=== PATIENT | male | born 1965 | race Two or more races ===

== ENCOUNTER → 2018-06-19 | Outpatient (CLI) | payer OTHER ==
[~2018-06-19] MED LIST: ASPI-650 PO; CALC-557 PO; CYAN250013 PO; DOCU-131 PO; FERR325T16 PO; FERR325T18 PO; FURO40TA6 PO; GUAI600T31 PO; INSU100I28 SQ-INSULIN; IPRA3AMP30 NPPB; LEVO750T26 PO; LISI-167 PO; METF1000 PO; METF500T17 PO; OMEP-110 PO; POTA20TA14 PO; PRED10TA PO; TAMS-11 PO; TRAZ150T62 PO
[2018-06-19 08:57] LABS: ALBUMIN 3.9 g/dL (3.4-5.0); ANION GAP 6 mmol/L (5-15); CALCIUM 9.2 mg/dL (8.5-10.1); CHLORIDE 107 mmol/L (98-107)
[2018-06-19 09:02] LABS: ALANINE AMINOTRANSFERASE 20 U/L (12-78); ALKALINE PHOSPHATASE 97 U/L (45-117); BILIRUBIN,TOTAL 0.3 mg/dL (0.2-1.0); CREATININE 0.85 mg/dL (0.7-1.3); TOTAL PROTEIN 7.7 g/dL (6.4-8.2)
[2018-06-19 10:25] LABS: BASOPHILS # (AUTO) 0.01 x10^3/uL (0-0.1); BASOPHILS % (AUTO) 0 % (0-1); EOSINOPHILS # (AUTO) 0.07 x10^3/uL (0-0.4); EOSINOPHILS % (AUTO) 1 % (1-7); LYMPHOCYTES # (AUTO) 0.88 x10^3/uL (1-3.4); LYMPHOCYTES % (AUTO) 13 % (22-44); MD MORPH REVIEW ONLY; MEAN CORPUSCULAR HEMOGLOBIN 21.5 pg (27.5-34.5); MEAN CORPUSCULAR HGB CONC 30.4 g/dL (33.2-36.2); MEAN CORPUSCULAR VOLUME 70.7 fL (81-97); MEAN PLATELET VOLUME 9.3 fL (7.4-10.4); MONOCYTES # (AUTO) 0.49 x10^3/uL (0.2-0.8); MONOCYTES % (AUTO) 8 % (2-9); NEUTROPHILS # (AUTO) 5.11 x10^3/uL (1.8-6.8); NEUTROPHILS % (AUTO) 78 % (42-75); PLATELET COUNT 267 x10^3/uL (130-400); RED BLOOD COUNT 5.28 x10^6/uL (4.38-5.82); RED CELL DISTRIBUTION WIDTH 22.9 % (9.4-14.8)
[2018-06-19 10:30] LABS: ANISOCYTOSIS 2+; MICROCYTOSIS 1+
[2018-06-19 10:33] LABS: <PLATELET ESTIMATE> ADEQUATE; LARGE PLATELETS 1+; OVALOCYTES 1+; POLYCHROMASIA 1+
== END | disposition home or self-care (01) ==
LOC: STAR 07:44
PROVIDERS: ATTEND Internal Medicine
DX: Z01.818 Encounter for other preprocedural examination (principal); K62.5 Hemorrhage of anus and rectum; D64.9 Anemia, unspecified
CPT/HCPCS: 36415; 80053; 85025; 93005

== ENCOUNTER 2018-06-27 10:29 | Day surgery (SDC) | payer OTHER ==
[~2018-06-27] VITALS: Ht 175.3 cm; Wt 151.0 kg
[2018-06-27] MEDS ORDERED: LACTATED RINGERS 1,000 ML IV SCH (11:26)
[2018-06-27 11:44] VITALS: BP 138/79
[2018-06-27] MEDS ORDERED: PROPOFOL 10 MG/ML, 20ML ONE (12:46)
[2018-06-27] MEDS ORDERED: HALOPERIDOL 5 MG/ML IV PRN (13:30)
[2018-06-27] MEDS ORDERED: ONDANSETRON 2MG/ML, 2ML IV PRN (13:30)
[2018-06-27] MEDS ORDERED: ONDANSETRON ODT 8 MG PO PRN (13:30)
[2018-06-27] MEDS ORDERED: DIAZEPAM 5 MG/ML, 2ML IVPush PRN (13:30)
[2018-06-27] MEDS ORDERED: MORPHINE SULFATE 4 MG/ML, 1ML IVPush PRN (13:30)
[2018-06-27] MEDS ORDERED: OXYcodone 5 MG/5 ML ORAL.SOL UDC PO PRN (13:30)
[2018-06-27] MEDS ORDERED: MIDAZOLAM 1 MG/ML, 2ML IV PRN (13:30)
[2018-06-27] MEDS ORDERED: EPHEDRINE 50 MG/ML, 1ML IVPush PRN (13:30)
[2018-06-27] MEDS ORDERED: ALBUTEROL SULFATE 2.5 MG/3 ML NPPB PRN (13:30)
[2018-06-27] MEDS ORDERED: MEPERIDINE/PF 25MG/0.5ML IVPush PRN (13:30)
[2018-06-27] MEDS ORDERED: PROMETHAZINE 12.5 MG SUPP PR PRN (13:30)
[2018-06-27] MEDS ORDERED: hydrALAzine 20 MG/ML, 1ML IV PRN (13:30)
[2018-06-27] MEDS ORDERED: LABETALOL 5MG/ML, 20ML IV PRN (13:30)
[2018-06-27] MEDS ORDERED: HYDROmorphone 2 MG/ML, 1ML IVPush PRN (13:30)
[2018-06-27] MEDS ORDERED: PROMETHAZINE 25 MG/ML, 1ML IV PRN (13:30)
[2018-06-27] MEDS ORDERED: FENTANYL PF 100 MCG/2ML IV PRN (13:30)
== END 2018-06-27 15:15 | disposition home or self-care (01) ==
LOC: OUT 10:29
PROVIDERS: ATTEND Internal Medicine
DX: K63.5 Polyp of colon (principal); K57.30 Diverticulosis of large intestine without perforation or abscess without bleeding; K64.8 Other hemorrhoids; K60.2 Anal fissure, unspecified; F41.9 Anxiety disorder, unspecified; E11.9 Type 2 diabetes mellitus without complications; Z72.89 Other problems related to lifestyle; Z87.891 Personal history of nicotine dependence; Z88.0 Allergy status to penicillin; Z88.8 Allergy status to other drugs, medicaments and biological substances
CPT/HCPCS: 43239; 45385; 82962; 88305; J2704; J7120

== ENCOUNTER → 2020-04-07 | Outpatient (CLI) | payer OTHER ==
[~2020-04-07] MED LIST changes: +ATOR10TA9 PO; +CHOL10003 PO
[2020-04-07 12:44] LABS: BASOPHILS % (AUTO) 0 % (0-1); EOSINOPHILS % (AUTO) 1 % (1-7); LYMPHOCYTES % (AUTO) 10 % (22-44); MEAN CORPUSCULAR HEMOGLOBIN 22.8 pg (27.5-34.5); MEAN PLATELET VOLUME 8.7 fL (7.4-10.4); MONOCYTES % (AUTO) 7 % (2-9); NEUTROPHILS % (AUTO) 82 % (42-75); PLATELET COUNT 205 x10^3/uL (130-400); RED BLOOD COUNT 5.64 x10^6/uL (4.38-5.82); RED CELL DISTRIBUTION WIDTH 26.4 % (9.4-14.8)
[2020-04-07 12:52] LABS: ALANINE AMINOTRANSFERASE 22 U/L (12-78); ALBUMIN 3.6 g/dL (3.4-5.0); ANION GAP 5 mmol/L (5-15); CALCIUM 8.7 mg/dL (8.5-10.1); CHLORIDE 106 mmol/L (98-107)
[2020-04-07 12:55] LABS: ALKALINE PHOSPHATASE 120 U/L (45-117); BILIRUBIN,TOTAL 0.4 mg/dL (0.2-1.0); CREATININE 0.96 mg/dL (0.7-1.3); TOTAL PROTEIN 7.4 g/dL (6.4-8.2)
[2020-04-07 17:24] LABS: <PLATELET ESTIMATE> ADEQUATE; MD MORPH REVIEW ONLY; MEAN CORPUSCULAR HGB CONC 29.7 g/dL (33.2-36.2)
[2020-04-07 17:25] LABS: POLYCHROMASIA 1+
[2020-04-07 17:26] LABS: ANISOCYTOSIS 2+; HYPOCHROMIA 1+
[2020-04-07 17:27] LABS: MICROCYTOSIS 2+; OVALOCYTES 1+
[2020-04-07 17:28] LABS: SCHISTOCYTES 1+; TEAR DROPS 1+
[2020-04-07 17:30] LABS: LARGE PLATELETS 1+
== END | disposition home or self-care (01) ==
LOC: STAR 11:13
PROVIDERS: ATTEND Internal Medicine
DX: Z01.812 Encounter for preprocedural laboratory examination (principal); Z20.828 Contact with and (suspected) exposure to other viral communicable diseases; I27.20 Pulmonary hypertension, unspecified; R94.31 Abnormal electrocardiogram [ECG] [EKG]; D64.9 Anemia, unspecified; K62.5 Hemorrhage of anus and rectum
CPT/HCPCS: 36415; 80053; 85025; 87635; 93005